=== PATIENT | male | born 1985 | race Two or more races ===

== ENCOUNTER 2017-12-06 00:28 | Emergency (ER) | payer SELFPAY ==
[~2017-12-06] VITALS: Ht 175.3 cm; Wt 65.8 kg
[2017-12-06] MEDS ORDERED: NKM (00:38)
[2017-12-06 00:50] VITALS: BP 113/61
[2017-12-06 01:09] LABS: APPEARANCE,URINE CLEAR; BILIRUBIN, URINE NEGATIVE (NEGATIVE); GLUCOSE, URINE (UA) NEGATIVE (NEGATIVE); KETONES,URINE NEGATIVE (NEGATIVE); LEUKOCYTE ESTERASE ,URINE NEGATIVE (NEGATIVE); NITRITE,URINE NEGATIVE (NEGATIVE); PH,URINE 6 (4.5-8.0); PROTEIN,URINE NEGATIVE (NEGATIVE); UROBILINOGEN,URINE 1 MG/DL (0.0-1.0)
[2017-12-06 01:10] LABS: COLOR,URINE YELLOW
--- NOTE | 2017-12-06 01:19 | Emergency Room Report ---
History of Present Illness General Chief Complaint: Male Urogenital Problems Source: Patient Present Illness HPI Is a 32-year-old male with no past medical history. He presents with chief complaint of dysuria. Onset for last one to 2 days. No discharge. Burning with urination. No frequency or urgency. No history of STD. Sexually active with one partner. Unprotected sex. Allergies: Coded Allergies: No Known Allergies (Unverified , 12/06/17) Patient History Past Medical History: see triage record, old chart reviewed Past Surgical History: none Pertinent Family History: none Social History: Denies: smoking Immunizations: other Reviewed Nursing Documentation: PMH: Agreed; PSxH: Agreed Nursing Documentation-PMH Past Medical History: No Stated History Review of Systems Eye: Denies: eye pain, blurred vision ENT: Denies: ear pain, nose congestion, throat swelling Respiratory: Denies: cough, shortness of breath Cardiovascular: Denies: chest pain, palpitations Gastrointestinal: Denies: abdominal pain, diarrhea, nausea, vomiting Genitourinary: Reports: dysuria Musculoskeletal: Denies: back pain, joint pain Skin: Denies: rash Neurological: Denies: headache, numbness Endocrine: Denies: increased thirst, increased urine Hematologic/Lymphatic: Denies: easy bruising All Other Systems: negative except mentioned in HPI Physical Exam Vital Signs Date Time Temp Pulse Resp B/P (MAP) Pulse Ox O2 Delivery O2 Flow Rate FiO2 12/06/17 00:34 97.5 67 18 113/61 96 Room Air 97.5 vitals normal Sp02 EP Interpretation: reviewed, normal General Appearance: well appearing, no apparent distress, alert Head: normocephalic, atraumatic Eyes: bilateral eye PERRL, bilateral eye EOMI ENT: hearing grossly normal, normal pharynx Neck: full range of motion, supple, no meningismus Respiratory: chest non-tender, lungs clear, normal breath sounds Cardiovascular #1: regular rate, rhythm, no murmur Gastrointestinal: normal bowel sounds, non tender, no mass, no organomegaly, no bruit, non-distended Genitourinary: normal inspection, penis normal, scrotum normal Musculoskeletal: back normal, gait/station normal, normal range of motion Psychiatric: mood/affect normal Skin: warm/dry Medical Decision Making Diagnostic Impression: Primary Impression: Urethritis, nongonococcal, sexually transmitted ER Course Patient presents with dysuria and most likely has Chlamydia urethritis. No evidence of systemic spread. We'll discharge home. Recommend outpatient testing for HIV, syphilis, STDs to name a few. Also have partner treated. Last Vital Signs Date Time Temp Pulse Resp B/P (MAP) Pulse Ox O2 Delivery O2 Flow Rate FiO2 12/06/17 00:50 97.5 67 18 113/61 96 Room Air 97.5 Status: improved Disposition: HOME, SELF-CARE Condition: Stable Patient Instructions: Urethritis, Adult Additional Instructions: Have your partner treated also. Recommend outpatient testing for HIV, syphilis , hepatitis, and other STDs. Follow-up your doctor in 7 days. Return if worse. ADAM AKINS M.D. Dec 06, 2017 01:19
[2017-12-06] MEDS ORDERED: Azithromycin 250mg tab ORAL ONE (01:30)
[2017-12-06] MEDS ORDERED: Lidocaine 1% MPF 10mg/ml 5ml INJ ONE (01:30)
[2017-12-06 01:38] VITALS: BP 113/61
== END 2017-12-06 01:38 | disposition home or self-care (01) ==
LOC: EMR 00:40
DX: N34.1 Nonspecific urethritis (principal); A64 Unspecified sexually transmitted disease
CPT/HCPCS: 81003; 96372; 99283; J0696